=== PATIENT | male | born 1990 | race Caucasian/White ===

== ENCOUNTER 2018-10-17 23:48 | Emergency (ER) | payer SELFPAY ==
--- NOTE | 2018-10-18 00:03 | ED.PDOC ---
History of Present Illness - General Chief Complaint: Upper Extremity Injury Stated Complaint: Right shoulder pain Time Seen by Provider: 10/17/18 23:54 Source: patient Exam Limitations: no limitations - History of Present Illness Initial Comments: Paulino Cortes 28 y/o male stated that he threw a heavy table at home then felt pop on his right shoulder unable to raise right arm with stabbing pain.Denies numbness of neck and arms. Occurred: just prior to arrival Pain - Upper Extremity: severe: Shoulder, right Method of Injury: other - see hpi Improving Factors: rest Worsening Factors: movement Associated Symptoms: pain Allergies/Adverse Reactions: Allergies Codeine Allergy (Verified 10/18/18 01:19) Penicillins Allergy (Verified 10/18/18 01:19) Review of Systems - Review of Systems Musculoskeletal: States: see HPI, joint pain - right shoulder All other Systems: Reviewed and Negative, No Change from Baseline Past Medical History (General) - Patient Medical History Hx Seizures: No Hx Asthma: No Hx Hypertension: No Surgical History: no surgical history Family Medical History - Family History Mother Living Status: Hx Family;Other: MVA Father Family History: Unknown Hx Family Diabetes: Yes Physical Exam - Physical Exam General Appearance: Anxious, No apparent distress Eyes, Ears, Nose, Throat Exam: normal ENT inspection Neck: full range of motion, normal inspection Cardiovascular/Respiratory: regular rate, rhythm, normal peripheral pulses, normal breath sounds Abdominal Exam: non-tender Back Exam: no CVA tenderness, no vertebral tenderness Shoulder Exam: asymmetry - loss of deltoid m.hump, deformity, limited ROM - painful, pain Elbow/Forearm Exam: normal inspection, non-tender, no evidence of injury Wrist Exam: normal inspection, no evidence of injury Hand Exam: normal inspection, no evidence of injury Neuro/Tendon: normal sensation - right deltoid area, normal motor functions, normal tendon functions, responds to pain, no evidence tendon injury Mental Status: alert, oriented x 3 Skin Exam: normal color, warm/dry Progress - Progress Progress: 10/18/18 00:58 Vital Signs - 8 hr 10/18/18 10/18/18 10/18/18 00:08 00:41 00:43 Temperature 95.7 F L Pulse Rate 101 H 101 H Pulse Rate [ 92 H 96 H 154 H left] Respiratory 18 18 18 Rate Blood Pressure 135/83 155/92 148/93 [left] O2 Sat by Pulse 98 99 99 Oximetry 10/18/18 00:45 Temperature Pulse Rate 101 H Pulse Rate [ 98 H left] Respiratory 18 Rate Blood Pressure 162/97 [left] O2 Sat by Pulse 100 Oximetry 10/18/18 01:37 Discuss post reduction x-ray w/ realignment of right shoulder ;patient does not want to take time off work in the [place];given patient discharge instruction;Awake fully alert with stable vital signs post conscious sedation 10/18/18 01:38 10/18/18 01:41 10/18/18 01:41 10/18/18 01:43 - EKG/XRAY/CT XRAY: right anterior shoulder dislocation;post reduction x-ray right shoulder anatomically aligned Procedures - Joint Reduction right shoulder Conscious Sedation: Yes - given propofol-200 mg slow iv Reduction Attempts: 3 Pre-Procedure NV Exam: Yes Post Joint Reduction Film: no fracture seen Departure - Departure Clinical Impression: Dislocation, shoulder, anterior Qualifiers: Encounter type: initial encounter Laterality: right Qualified Code(s): S43.014A - Anterior dislocation of right humerus, initial encounter Time of Disposition: 01:36 Disposition: Discharge to Home or Self Care Condition: Fair Departure Forms: ED Discharge - Pt. Copy, Patient Portal Self Enrollment Instructions: Shoulder Dislocation, Shoulder Dislocation (DC) Referrals: Bhaskar Tapia MD [Primary Care Provider] - 1-2 Weeks Additional Instructions: Follow up with primary Md for recheck in one week 24 Oct 2018;May take (over the counter )Aleve 1-2 tablets am/pm for pain as needed
[2018-10-18] MEDS ORDERED: SODIUM CHLORIDE 0.9% 1000ML 1,000 ML ONE (00:26)
--- NOTE | 2018-10-18 00:28 | RAD ---
EXAM DESCRIPTION: Shoulder, right 2 or More Views CLINICAL HISTORY: 28 years Male right shoulder pain/injury COMPARISON: None. TECHNIQUE: Two views of the left shoulder. FINDINGS: There are changes from anterior and inferior dislocation of the shoulder. No definite acute fracture is identified. IMPRESSION: Anterior dislocation of the shoulder. Electronically signed by: Darin Jamison MD 10/18/2018 12:26 AM [employer] Workstation: [id number]
[2018-10-18] MEDS ORDERED: SODIUM CHLORIDE 0.9% 1000ML 1,000 ML IVS ONE (00:30)
[2018-10-18] MEDS ORDERED: PROPOFOL 200 MG/20 ML VIAL IV ONE ×2 (00:31→00:40)
[2018-10-18 00:46] VITALS: O2SAT 100
--- NOTE | 2018-10-18 01:05 | RAD ---
RIGHT SHOULDER, SINGLE VIEW. 10/18/2018 at 0046 hours HISTORY: Postreduction. COMPARISON: 10/18/2018 at 0013 hours. TECHNIQUE: Single AP view of the right shoulder. FINDINGS: The proximal right humerus is anatomically aligned relative to the bony glenoid. No fracture lucency seen. Preserved acromioclavicular alignment. IMPRESSION: 1. Anatomic alignment of the right shoulder on this single frontal view. Electronically signed by: Rebekah Buckley DO 10/18/2018 1:03 AM [facility]
[2018-10-18] MEDS ORDERED: traMADol HCL 50 MG (ER DISP) # 6 TABS PO ONE (01:38)
[2018-10-18 02:00] VITALS: BP 134/87; TEMP 97.2
== END 2018-10-18 01:54 | disposition home or self-care (01) ==
LOC: ER 23:48
DX: S43.014A Anterior dislocation of right humerus, initial encounter (principal); X50.9XXA Other and unspecified overexertion or strenuous movements or postures, initial encounter; Z88.0 Allergy status to penicillin; Z88.5 Allergy status to narcotic agent
CPT/HCPCS: 73020; 73030; 94770; J3490; J7030